=== PATIENT | male | born 1940 | race Caucasian/White ===

== ENCOUNTER 2020-01-15 18:17 | Observation (INO) ==
--- NOTE | 2020-01-15 18:38 | CT ---
HISTORYSLURRED SPEECH, AMSSTUDYBRAIN W/O CONCOMPARISONNone availableTECHNIQUEMultiple helical images of the brain from the vertex to the occiput were obtained. Coronal and sagittal reformats were performed. Dose reduction techniques including Automated Exposure Control (AEC) and adjustment of mA and kV were utilized.FINDINGSModerate generalized cerebral atrophy. Mild bilateral periventricular and deep white matter hypoattenuation is nonspecific however likely represents sequela of chronic microvascular ischemic disease. [No acute intraparenchymal hemorrhage or mass can be identified.] [No extra-axial fluid collections are seen.] [No alteration in the attenuation of the brain parenchyma can be identified to suggest acute or subacute ischemic change.] [The ventricular system is symmetric and nondilated.] [The extracranial structures are grossly unremarkable.]IMPRESSIONNo acute intracranial process identified.Moderate cerebral atrophy with mild bilateral periventricular and deep white matter hypoattenuation is nonspecific; however likely represents sequela of chronic microvascular ischemic disease. If persistent acute neurological deficits consider correlation with brain MRI for further evaluation.Electronically signed by: SHANI MORRISON (Jan 15, 2020 18:36:24)
--- NOTE | 2020-01-15 18:40 | DR.GENAD ---
HPI - PCP [facility] Phys[facility]: [facility] - HPI Comment HPI Comment: patient brought to hospital for Altered mental status. Patient was on the tractor at home and when his came out to talk to him he was apasic difficulty trying to talk. On arrival to Er he was talking some but not normal. He cleared much more after the CT scan of his head was completed. - COVID-19 Coronavirus risk:travel/contact w/high risk person: No Has patient experienced Coronavirus symptoms: No - Source History Provided: Family Member - Mode of Arrival Mode of Arrival: Ambulatory - Timing Came on: Suddenly - Duration Duration: Minutes - Location Location: generalized - Severity Severity: Moderate - Modifying Factors Worsens:: unknown PMH - PMH Surgical History: CABG/Valve Surgery, Other (aneurysm) Unable to Obtain Due To: Altered mental status - Social History Lives With: Spouse Lives Where: Home - Travel Risk Coronavirus risk:travel/contact w/high risk person: No Has patient experienced Coronavirus symptoms: No ROS - Review of Systems Constitutional: No Symptoms Reported Eyes: No Symptoms Reported ENTM: No Symptoms Reported Respiratoy: No Symptoms Reported Cardiovascular: No Symptoms Reported Gastrointestinal/Abdominal: No Symptoms Reported Genitourinary: No Symptoms Reported Neurological: Other (expressive aphasia) Musculoskeletal: No Symptoms Reported Integumentary: No Symptoms Reported Hematologic/Lymphatic: No Symptoms Reported Endocrine: No Symptoms Reported Psychiatric: No Symptoms Reported All Other Systems: Reviewed and Negative PE - General Limitations: Altered Mental Status (nearly resolved) General Appearance: Lethargic - Head Head Exam: Normal Inspection - Eyes Eye exam: Normal Appearance, EOMI - ENT ENT Exam: Normal Exam, Normal Oropharynx External Ear Exam: Normal External Inspection Mouth Exam: Normal Inspection Throat Exam: Normal Inspection - Neck Neck Exam: Normal Inspection, Full ROM, Trachea Midline - Chest Chest Inspection: Normal Inspection - Extremities Extremities Exam: Normal Inspection - Back Back Exam: Normal Inspection, Full ROM - Neurologic Neurological Exam: Alert, Oriented X3, CN II-XII Intact - Psychiatric Psychiatric Exam: Flat Affect - Skin Skin Exam: Intact, Normal Color - Vital Signs Vitals: Temperature 99.3 F Pulse Rate 61 Respiratory Rate 22 Blood Pressure 186/78 O2 Sat by Pulse Oximetry 99 Course - Consultation Called: 19:45 Call Returned: 19:45 Consultation Comments: case discussed with DR. Murrieta observation ROR - Labs Reviewed Result Diagrams: 01/15/20 18:45 01/15/20 18:45 - XRAY XRAY Interpreted by: Radiologist - EKG Rate: 56 [place]: Normal Block: RBBB Hypertrophy: None ST: Nonsp - Labs Reviewed Laboratory: WBC 6.9 X10^3/uL (3.6-10.0) 01/15/20 18:45 RBC 4.91 X10^6/uL (4.7-6.0) 01/15/20 18:45 Hgb 15.6 g/dL (13.5-18.0) 01/15/20 18:45 Hct 45.6 % (42.0-54.0) 01/15/20 18:45 MCV 92.8 fL (80.0-100.0) 01/15/20 18:45 MCH 31.7 pg (27.0-34.0) 01/15/20 18:45 MCHC 34.2 g/dL (33.0-35.0) 01/15/20 18:45 RDW 14.2 % (11.6-16.5) 01/15/20 18:45 Plt Count 221 X10^3/uL (150.0-450.0) 01/15/20 18:45 MPV 7.3 fL (7.4-11.0) L 01/15/20 18:45 Neut % (Auto) 64.7 % (42.0-75.0) 01/15/20 18:45 Lymph % (Auto) 27.1 % (21.0-51.0) 01/15/20 18:45 [place] % (Auto) 6.2 % (0.0-13.0) 01/15/20 18:45 Eos % (Auto) 1.5 % (0.9-2.9) 01/15/20 18:45 Baso % (Auto) 0.5 % (0.2-1.0) 01/15/20 18:45 Neut # (Auto) 4.5 x10^3/uL (2.2-4.8) 01/15/20 18:45 Lymph # (Auto) 1.9 X10^3/uL (1.3-2.9) 01/15/20 18:45 [place] # (Auto) 0.4 x10^3/uL (0.3-0.8) 01/15/20 18:45 Eos # (Auto) 0.1 x10^3/uL (0.0-0.2) 01/15/20 18:45 Baso # (Auto) 0.0 X10^3/uL (0.0-0.1) 01/15/20 18:45 Absolute Nucleated RBC 0.1 /100WBC 01/15/20 18:45 PT 12.6 SECONDS (11.8-14.3) 01/15/20 18:45 INR Target Range - 01/15/20 18:45 INR 0.97 (0.8-1.3) 01/15/20 18:45 Sodium 142 mmol/L (136-145) 01/15/20 18:45 Corrected Sodium TNP 01/15/20 18:45 Potassium 4.1 mmol/L (3.5-5.1) 01/15/20 18:45 Chloride 103 mmol/L (98-107) 01/15/20 18:45 Carbon Dioxide 29.2 mmol/L (21-32) 01/15/20 18:45 BUN 16 mg/dL (7-18) 01/15/20 18:45 Creatinine 1.28 mg/dL (0.70-1.30) 01/15/20 18:45 Est GFR (MDRD) Af Amer > 60 (>60) 01/15/20 18:45 Est GFR (MDRD) Non-Af 58 (>60) L 01/15/20 18:45 Glucose 105 mg/dL (65-99) H 01/15/20 18:45 Calcium 9.4 mg/dL (8.5-10.1) 01/15/20 18:45 Corrected Calcium TNP 01/15/20 18:45 Total Bilirubin 0.80 mg/dL (0.2-1.0) 01/15/20 18:45 AST 27 Units/L (15-37) 01/15/20 18:45 ALT 29 Units/L (12-78) 01/15/20 18:45 Alkaline Phosphatase 71 Units/L (46-116) 01/15/20 18:45 Creatine Kinase 288 Units/L (39-308) 01/15/20 18:45 CK-MB (CK-2) 5.0 ng/mL (0-4.0) H* 01/15/20 18:45 CK/CKMB % Calc 1.7 % (<4) 01/15/20 18:45 Troponin I 0.05 ng/mL (0-1.5) 01/15/20 18:45 B-Natriuretic Peptide 136 pg/mL (0-79) H 01/15/20 18:45 Total Protein 7.5 g/dL (6.4-8.2) 01/15/20 18:45 Albumin 4.0 g/dL (3.4-5.0) 01/15/20 18:45 Globulin 3.5 g/dL (2.5-4.5) 01/15/20 18:45 Albumin/Globulin Ratio 1.1 Ratio (1.1-2.1) 01/15/20 18:45 - XRAY Xray Findings: CT HEAD: MPRESSION No acute intracranial process identified. Moderate cerebral atrophy with mild bilateral periventricular and deep white matter hypoattenuation is nonspecific; however likely represents sequela of chronic microvascular ischemic disease. If persistent acute neurological deficits consider correlation with brain MRI for further evaluation. (VINNIE MARTINES) Opioid - Opioid Risk Tool Total: 0 Total Score Risk Category: Low Risk - Diagnosis Discharge Problem: Altered mental status Qualifiers: Altered mental status type: transient alteration of awareness Qualified Code(s): R40.4 - Transient alteration of awareness - Discharge Plan Condition: Stable - Follow ups/Referrals Follow ups/Referrals: Neal Murrieta [Primary Care Provider] - 3 days - Instructions
[2020-01-15] MEDS ORDERED: NITRODUR PATCH 0.4 MG/HR TD ONE ×2 (18:43→18:56)
[2020-01-15] MEDS ORDERED: NS 500 ML IV 500 ML IV ONE (18:44)
[2020-01-15] MEDS ORDERED: NS 1000 ML 1,000 ML ONE (18:47)
[2020-01-15 18:59] LABS: BASOPHILS % (AUTO) 0.5 % (0.2-1.0); EOSINOPHILS # (AUTO) 0.1 x10^3/uL (0.0-0.2); EOSINOPHILS % (AUTO) 1.5 % (0.9-2.9); HEMATOCRIT 45.6 % (42.0-54.0); HEMOGLOBIN 15.6 g/dL (13.5-18.0); LYMPHOCYTES # (AUTO) 1.9 X10^3/uL (1.3-2.9); LYMPHOCYTES % (AUTO) 27.1 % (21.0-51.0); MEAN CORPUSCULAR HEMOGLOBIN 31.7 pg (27.0-34.0); MEAN CORPUSCULAR HGB CONC 34.2 g/dL (33.0-35.0); MEAN CORPUSCULAR VOLUME 92.8 fL (80.0-100.0); MEAN PLATELET VOLUME 7.3 fL (7.4-11.0); MONOCYTES # (AUTO) 0.4 x10^3/uL (0.3-0.8); MONOCYTES % (AUTO) 6.2 % (0.0-13.0); NEUTROPHILS # (AUTO) 4.5 x10^3/uL (2.2-4.8); NEUTROPHILS % (AUTO) 64.7 % (42.0-75.0); PLATELET COUNT 221 X10^3/uL (150.0-450.0); RED BLOOD COUNT 4.91 X10^6/uL (4.7-6.0); RED CELL DISTRIBUTION WIDTH 14.2 % (11.6-16.5); WHITE BLOOD COUNT 6.9 X10^3/uL (3.6-10.0)
[2020-01-15 19:07] LABS: ALANINE AMINOTRANSFERASE 29 Units/L (12-78); ALKALINE PHOSPHATASE 71 Units/L (46-116); ASPARTATE AMINO TRANSFERASE 27 Units/L (15-37); BLOOD UREA NITROGEN 16 mg/dL (7-18); CALCIUM 9.4 mg/dL (8.5-10.1); CARBON DIOXIDE 29.2 mmol/L (21-32); CHLORIDE 103 mmol/L (98-107); CREATININE 1.28 mg/dL (0.70-1.30); SODIUM 142 mmol/L (136-145); TOTAL PROTEIN 7.5 g/dL (6.4-8.2); eGFR NON BLACK RACES 58 (>60)
[2020-01-15 19:41] LABS: CKMB % 1.7 % (<4); TROPONIN I 0.05 ng/mL (0-1.5)
--- NOTE | 2020-01-15 20:00 | RAD ---
HISTORYAMSSTUDYCHEST, PA/LAT ADULTCOMPARISONNone available.FINDINGSTrachea is midline. Heart size enlarged. Previous median sternotomy is noted. Moderate increased interstitial opacities are noted throughout both lungs. No focal airspace opacity. No large effusion or pneumothorax. No acute osseous abnormality.IMPRESSIONCardiomegaly and pulmonary interstitial edema are consistent with acute CHF exacerbation.Electronically signed by: SHANI MORRISON (Jan 15, 2020 19:59:05)
[2020-01-15 20:59] LABS: CKMB % 1.9 % (<4); TROPONIN I 0.05 ng/mL (0-1.5)
[2020-01-15 21:02] LABS: CREATINE KINASE MB 4.6 ng/mL (0-4.0)
[2020-01-15 22:57] VITALS: BMI 27.7
[2020-01-16 02:22] LABS: BASOPHILS # (AUTO) 0.1 X10^3/uL (0.0-0.1); BASOPHILS % (AUTO) 0.8 % (0.2-1.0); EOSINOPHILS # (AUTO) 0.1 x10^3/uL (0.0-0.2); EOSINOPHILS % (AUTO) 1.1 % (0.9-2.9); HEMATOCRIT 41.4 % (42.0-54.0); HEMOGLOBIN 14.2 g/dL (13.5-18.0); LYMPHOCYTES # (AUTO) 1.5 X10^3/uL (1.3-2.9); MEAN CORPUSCULAR HEMOGLOBIN 31.6 pg (27.0-34.0); MEAN CORPUSCULAR HGB CONC 34.2 g/dL (33.0-35.0); MEAN CORPUSCULAR VOLUME 92.6 fL (80.0-100.0); MEAN PLATELET VOLUME 7.4 fL (7.4-11.0); MONOCYTES # (AUTO) 0.5 x10^3/uL (0.3-0.8); NEUTROPHILS # (AUTO) 5.7 x10^3/uL (2.2-4.8); NEUTROPHILS % (AUTO) 73.1 % (42.0-75.0); PLATELET COUNT 194 X10^3/uL (150.0-450.0); RED BLOOD COUNT 4.48 X10^6/uL (4.7-6.0); RED CELL DISTRIBUTION WIDTH 14.5 % (11.6-16.5); WHITE BLOOD COUNT 7.8 X10^3/uL (3.6-10.0)
[2020-01-16 02:37] LABS: ALANINE AMINOTRANSFERASE 26 Units/L (12-78); ALBUMIN 3.4 g/dL (3.4-5.0); ALKALINE PHOSPHATASE 58 Units/L (46-116); ASPARTATE AMINO TRANSFERASE 22 Units/L (15-37); BLOOD UREA NITROGEN 14 mg/dL (7-18); CALCIUM 8.6 mg/dL (8.5-10.1); CARBON DIOXIDE 28.7 mmol/L (21-32); CHLORIDE 106 mmol/L (98-107); COR NA(FOR HYPERGLY) 142 mmol/L (136-145); SODIUM 142 mmol/L (136-145); TOTAL PROTEIN 6.4 g/dL (6.4-8.2); eGFR NON BLACK RACES > 60 (>60)
[2020-01-16 02:55] LABS: TROPONIN I 0.04 ng/mL (0-1.5)
[2020-01-16 02:57] LABS: CKMB % 2.1 % (<4); CREATINE KINASE MB 4.3 ng/mL (0-4.0)
--- NOTE | 2020-01-16 06:33 | RAD ---
HISTORYShortness of breathSTUDYCHEST, 1 [id number]/16/2020FINDINGSPatient is status post median sternotomy. The heart is mildly enlarged. Mild pulmonary venous congestion is present. No interstitial edema, alveolar edema, alveolar infiltrates or pleural effusions are identified. Bony thorax is unremarkable.IMPRESSIONCardiomegaly with pulmonary venous congestion but no evidence for interstitial or alveolar edemaNo infiltratesElectronically signed by: WENCESLAO CARBONE (Jan 16, 2020 06:31:55)
[2020-01-16] MEDS ORDERED: POTASSIUM CHL 60 MEQ/NS 0.45% 500 ML IV PRN (06:54)
[2020-01-16] MEDS ORDERED: K-DUR TAB 20 MEQ PO PRN (06:54)
[2020-01-16] MEDS ORDERED: K-RIDER 10 MEQ/NS 100 ML 10 MEQ/100 ML BAG IV PRN (06:54)
[2020-01-16] MEDS ORDERED: POTASSIUM CHL 40 MEQ/NS 0.45% 500 ML IV PRN (06:54)
[2020-01-16] MEDS ORDERED: MICRO K EXTEN CAP 10 MEQ PO PRN (06:54)
[2020-01-16] MEDS ORDERED: POTASSIUM CHLORIDE LIQ 20 MEQ UDC PO PRN (06:54)
[2020-01-16] MEDS ORDERED: KLOR-CON PO PRN (06:54)
[2020-01-16 08:22] LABS: CKMB % 2.1 % (<4); TROPONIN I 0.03 ng/mL (0-1.5)
[2020-01-16 08:23] LABS: CREATINE KINASE MB 4.2 ng/mL (0-4.0)
[2020-01-16] MEDS: LASIX IVP SCH ×2 (08:38→16:50)
[2020-01-16] MEDS ORDERED: TYLENOL 325 MG TAB PO PRN (09:05)
--- NOTE | 2020-01-16 10:25 | VAS ---
HISTORY: Concern for carotid artery stenosis. Altered mental status and dizziness. Carotid atherosclerosis.EXAM: BILATERAL DOPPLER CAROTID ULTRASOUND EXAMTechnique: Multiple medley scale and color flow Doppler images of the right and left carotid arterial system were obtained. The vertebral arterial system was evaluated as well.Findings:Nonocclusive color flow Doppler is seen throughout the right and left carotid arterial system. There is [advanced/severe bilateral carotid] atherosclerosis and [hard atherosclerotic] plaque formation of the bilateral carotid bulbs and ICAs with associated intimal thickening but [without] evidence for high-grade stenosis (>70%) or occlusion of the carotid arteries. The right vertebral artery demonstrates antegrade flow. The left vertebral artery is not well seen on this examination which may be secondary to technical factors or chronic arterial occlusion in this patient.IMPRESSION:Elevated velocities in the right and left ICA in the 50-69% stenosis range.Elevated velocities in the right and left CCA in the 50-69% stenosis range.Elevated velocities in both ECAs in the critical or > 90% stenosis range.Advanced/severe bilateral carotid atherosclerosis and hard atherosclerotic plaque formation of the bilateral carotid bulbs and [in both] ICAs with associated carotid intimal thickening and with multifocal regions of high-grade vascular stenosis also appreciated, as above.Appropriate, antegrade, right vertebral arterial flow. The left vertebral artery is not well seen on the exam.Peak right ICA velocity: [191] centimeter/seconds.Peak right CCA velocity: [175] centimeter/seconds.Peak left ICA velocity: [140] centimeter/seconds.Peak left CCA velocity: [212] centimeter/seconds.Right ICA to CCA ratio: [1.23].Left ICA to CCA ratio: [0.8].Electronically signed by: MAKI DARLING III (Jan 16, 2020 10:24:03)
--- NOTE | 2020-01-16 14:37 | MRI ---
HISTORYAMS, WEAKNESS, PERIODS OF APHAGIA/ ST MEMORY LOSS, TIA VS CVASTUDYBRAIN W/O CONCOMPARISONCT head dated January 15, 2020.TECHNIQUEMultiplanar multi-sequence MRI of the brain was obtained without contrast.FINDINGSAge related cortical atrophy and chronic small vessel ischemic changes. There is left greater than right areas of restricted diffusion within the cortex of the bilateral frontal lobes. The midline structures appear unremarkable. The evaluation of the brain parenchyma demonstrates no abnormal signal characteristics to suggest intraparenchymal mass or hemorrhage. No extra-axial fluid collections are observed. The ventricular system appears symmetric and nondilated. The CP angle is normal in its appearance without brainstem mass or evidence for acoustic neuroma. The flow voids on both T1 and T2 weighted imaging appear unremarkable. The extracranial structures are unremarkable.IMPRESSIONAcute ischemia/infarction of the left greater than right cortex of the bilateral frontal lobes. 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 Recommend clinical/laboratory correlation.Electronically signed by: VINCENT ABREU (Jan 16, 2020 14:35:05)
[2020-01-16] MEDS ORDERED: NORVASC TAB 5 MG PO ONE (14:53)
--- NOTE | 2020-01-16 16:31 | DR.H&P ---
H&P - History & Physical for Day of: H&P Date: 01/15/20 - Chief Complaint Chief Complaint: AMS - History of Present Illness History of Present Illness: IS A 79 YEAR OLD PATIENT OF OURS. HE PRESENTED TO THE ER DUE TO ALTERED MENTAL STATUS. PATIENTS SPOUSE REPORTS THAT HE WAS ON THE TRACTOR AT HOME. WHEN SHE CAME OUT TO TALK TO HIM, HE WAS ASPHASIC AND NOT RESPONDING APPROPRIATELY. AFTER ARRIVAL AT THE ER, SPEECH REMAINED SOMEWHAT SLURRED, BUT WAS IMPROVING. HE CONTINUED WITH ALTERED MENTAL STATUS. ON ARRIVAL TO THE ER, VITALS WERE 99.3-57-20-96%-215/84. LABS WERE OBTAINED. ABNORMAL LAB VALUES INCLUDE THE FOLLOWING: GLUCOSE 105, BNP 136. CK-MB IS 5.0, OTHERWISE, CARDIAC ENZYMES ARE NORMAL. A BRAIN CT WAS OBTAINED AND REVEALED: No acute intracranial process identified. Moderate cerebral atrophy with mild bilateral periventricular and deep white matter hypoattenuation is nonspecific; however likely represents sequela of chronic microvascular ischemic disease. If persistent acute neurological deficits consider correlation with brain MRI for further evaluation. EKG REVEALED: RIGHT BUNDLE BRANCH BLOCK, HR 56. A CHEST XRAY WAS OBTIANED AND REVEALED: Cardiomegaly and pulmonary interstitial edema are consistent with acute CHF exacerbation. HE WAS GIVEN A NORMAL SALINE BOLUS AND A NITRO PATCH. HE WAS ADMITTED FOR AMS, RULE OUT ACUTE CVA. HE WAS STARTED ON LASIX 20MG IV BID AND THE POTASSIUM AND MAGNESIUM PROTOCOLS. TODAY, WE WILL OBTAIN A BRAIN MRI WITHOUT CONTRAST, AN ECHO, AND A CAROTID DOPPLER. WE WILL RESUME HIS HOME MEDICATIONS. OTHERWISE, WE WILL FOLLOW UP WITH AM LABS AND CONTINUE TO MONITOR. - Past Medical History Past Medical History: Coronary Artery Disease - Past Surgical History Surgical History: CABG/Valve Surgery, Cholecystectomy - Family History Family Medical History: Coronary Artery Disease - Social History Does patient currently use any type of tobacco product: No Have you used tobacco products in the last 12 months: No Type of Tobacco Use: None How many years tobacco product used: 35 Does any household member use tobacco: No Alcohol Use: None Drug Use: None - Medications Home Medications: penicillin G Allergy (Verified 01/15/20 18:49) CONTINUE taking the following medications atorvastatin [Lipitor] 80 mg PO DAILYHS 01/15/20 [History] gabapentin 300 mg PO TID 01/15/20 [History] ropinirole 2 mg PO QHS 01/15/20 [History] New Prescriptions aspirin [Ecotrin] 325 mg PO QDAY #90 tab 01/16/20 [Rx] nitroglycerin 1 patch TRANSDERMAL Q24H #30 ea 01/16/20 [Rx] - Review of Systems Constitutional: See HPI, Weakness Eyes: No Symptoms Reported ENT: No Symptoms Reported Respiratory: No Symptoms Reported Cardiovascular: No Symptoms Reported Gastrointestinal: No Symptoms Reported Genitourinary: No Symptoms Reported Musculoskeletal: No Symptoms Reported Neurological: Weakness, Change in Speech, Confusion - Physical Exam Vital Signs: Temperature 98.6 F Pulse Rate [Apical] 58 Pulse Rate 61 Respiratory Rate 18 Blood Pressure [Right Arm] 147/95 Blood Pressure 166/77 O2 Sat by Pulse Oximetry 96 Oriented: Person Eyes: Normal Ear: Normal Nose: Normal Throat: Normal Respiratory: Diminished Throughout Cardiovascular: Normal : Normal Auscultation: Bowel Sounds: Normal Palpation: Normal Tenderness: Normal Skin: Normal Musculoskeletal: Normal Psychiatric: Other Mood Description: Calm Affect: Normal Speech Pattern: Slurred - Assessment/Plan (1) CVA (cerebral vascular accident) Qualifiers: CVA mechanism: unspecified Qualified Code(s): I63.9 - Cerebral infarction, unspecified Status: Suspected Plan: OBTAIN BRAIN MRI, ECHO, CAROTID, CONTINUE TO MONITOR (2) Altered mental status Qualifiers: Altered mental status type: transient alteration of awareness Qualified Code(s): R40.4 - Transient alteration of awareness Status: Acute (3) Hypertension Qualifiers: Hypertension type: essential hypertension Qualified Code(s): I10 - Essential (primary) hypertension Status: Acute Plan: NITRO PATCH, CONTINUE TO MONITOR - Allergies Allergies/Adverse Reactions: Allergies Allergy/AdvReac Type Severity Reaction Status Date / Time penicillin G Allergy Verified 01/15/20 18:49
[2020-01-16] MEDS: ELIQUIS PO SCH ×2 (16:49→21:08)
[2020-01-16] MEDS: NEURONTIN CAP 300 MG PO SCH ×2 (16:54→21:07)
[2020-01-16] MEDS ORDERED: NEURONTIN CAP 300 MG PO ONE (16:56)
[2020-01-16] MEDS ORDERED: NS 250 ML IV 250 ML IV ONE (19:46)
[2020-01-16] MEDS ORDERED: REQUIP PO SCH (21:00)
[2020-01-16] MEDS ORDERED: LIPITOR TAB 40 MG PO SCH (21:00)
[2020-01-16] MEDS: MAGNESIUM SULFATE 1 GRAM/100 mL PREMIX 1 GM/100 ML BAG IV PRN ×2 (21:08→22:52)
[2020-01-17] MEDS: NEURONTIN CAP 300 MG PO SCH (05:49)
--- NOTE | 2020-01-17 06:08 | RAD ---
HISTORYShortness of breathSTUDYCHEST, 1 VIEWCOMPARISONChest x-ray dated January 16, 2020.FINDINGSThe trachea is midline. The cardiac silhouette is stably enlarged without overt signs of failure. Postsurgical changes status post CABG. Left lower lobe airspace disease. The right lung is clear. No significant pleural effusion or pneumothorax. The bony thorax is unremarkable.IMPRESSIONLeft lower lobe airspace disease. Recommend following to resolution.Electronically signed by: VINCENT ABREU (Jan 17, 2020 06:07:17)
[2020-01-17 06:18] LABS: BASOPHILS % (AUTO) 0.5 % (0.2-1.0); EOSINOPHILS # (AUTO) 0.2 x10^3/uL (0.0-0.2); EOSINOPHILS % (AUTO) 2.3 % (0.9-2.9); HEMATOCRIT 45.1 % (42.0-54.0); HEMOGLOBIN 15.5 g/dL (13.5-18.0); LYMPHOCYTES # (AUTO) 2.1 X10^3/uL (1.3-2.9); LYMPHOCYTES % (AUTO) 31.9 % (21.0-51.0); MEAN CORPUSCULAR HEMOGLOBIN 31.9 pg (27.0-34.0); MEAN CORPUSCULAR HGB CONC 34.2 g/dL (33.0-35.0); MEAN CORPUSCULAR VOLUME 93.1 fL (80.0-100.0); MEAN PLATELET VOLUME 7.2 fL (7.4-11.0); MONOCYTES # (AUTO) 0.6 x10^3/uL (0.3-0.8); MONOCYTES % (AUTO) 8.5 % (0.0-13.0); NEUTROPHILS # (AUTO) 3.7 x10^3/uL (2.2-4.8); NEUTROPHILS % (AUTO) 56.8 % (42.0-75.0); PLATELET COUNT 202 X10^3/uL (150.0-450.0); RED BLOOD COUNT 4.85 X10^6/uL (4.7-6.0); RED CELL DISTRIBUTION WIDTH 14.3 % (11.6-16.5); WHITE BLOOD COUNT 6.5 X10^3/uL (3.6-10.0)
[2020-01-17 06:49] LABS: ALANINE AMINOTRANSFERASE 28 Units/L (12-78); ALBUMIN 3.6 g/dL (3.4-5.0); ALKALINE PHOSPHATASE 68 Units/L (46-116); ASPARTATE AMINO TRANSFERASE 23 Units/L (15-37); BLOOD UREA NITROGEN 14 mg/dL (7-18); CALCIUM 8.9 mg/dL (8.5-10.1); CARBON DIOXIDE 32.1 mmol/L (21-32); CHLORIDE 103 mmol/L (98-107); CREATININE 1.22 mg/dL (0.70-1.30); SODIUM 140 mmol/L (136-145); TOTAL PROTEIN 7.2 g/dL (6.4-8.2); eGFR NON BLACK RACES > 60 (>60)
[2020-01-17] MEDS: ELIQUIS PO SCH (08:32)
[2020-01-17] MEDS ORDERED: NORVASC TAB 5 MG PO SCH ×2 (09:00→21:00)
[2020-01-17] MEDS ORDERED: ASPIRIN EC 81 MG PO ONE (09:00)
[2020-01-17] MEDS ORDERED: ELIQUIS PO SCH (09:00)
[2020-01-17] MEDS ORDERED: NITRODUR PATCH 0.2 MG/HR TD ONE (09:00)
--- NOTE | 2020-01-17 09:16 | CT ---
HISTORYPATIENT HAS HX OF AAASTUDYABDOMEN W/O CONCOMPARISONNone.TECHNIQUEMultiple axial images of the abdomen and pelvis were obtained from the lung bases to the pubic symphysis without the administration of IV contrast. Dose reduction techniques including Automated Exposure Control (AEC) and adjustment of mA and kV were utilized.Study severely limited secondary to lack of IV and oral contrast.FINDINGSCardiomegaly with coronary artery and valvular calcifications. Bibasilar scarring versus atelectasis. Visualized liver, spleen, pancreas, and adrenal glands are unremarkable. Vascular calcifications versus nonobstructing bilateral renal nephroliths. The kidneys are otherwise unremarkable. The gallbladder is surgically absent. No significant mesenteric lymphadenopathy or stranding can be observed. No free fluid or free air is seen within the abdomen. Limited evaluation of the large and small bowel secondary to lack of oral contrast and collapse. Diverticulosis without evidence of diverticulitis. Remaining large and small bowel are otherwise unremarkable. The appendix appears normal. The prostate gland is unremarkable. The urinary bladder is grossly unremarkable. Extensive vascular calcifications with fusiform aneurysmal dilatation of the infrarenal abdominal aorta measuring 5.1 x 5.0 cm in greatest dimension. There is a calcified septation within the aneurysm which may represent remote dissection. Degenerative changes of the spine. No aggressive osseous lesions.IMPRESSIONOne. No CT evidence of acute abdominal/pelvic pathology.Two. Infrarenal abdominal aortic aneurysm measuring 5.1 cm in greatest dimension.Three. Other chronic findings as above.Electronically signed by: VINCENT ABREU (Jan 17, 2020 09:14:56)
[2020-01-17] MEDS: LASIX IVP SCH (09:31)
[2020-01-17 11:36] VITALS: BP 179/74
== END 2020-01-17 10:40 | disposition home or self-care (01) ==
LOC: MED/SURG 18:18 → ER 18:18 → MED/SURG 21:41
PROVIDERS: ADMIT Internal Medicine; ATTEND Internal Medicine
DX: I50.9 Heart failure, unspecified; I71.4 Abdominal aortic aneurysm, without rupture; I45.19 Other right bundle-branch block; R40.4 Transient alteration of awareness; R26.89 Other abnormalities of gait and mobility; I25.10 Atherosclerotic heart disease of native coronary artery without angina pectoris; I63.9 Cerebral infarction, unspecified; Z79.899 Other long term (current) drug therapy